=== PATIENT | male | born 1960 | race Caucasian/White ===

== ENCOUNTER 2020-01-27 13:56 | Inpatient (IN) | payer OTHER, SELFPAY ==
[~2020-01-27] VITALS: Ht 180.3 cm; Wt 96.6 kg
[2020-01-27 14:48] VITALS: BP_SYST 142
--- NOTE | 2020-01-27 14:57 | NUR ---
Patient triaged and placed in waiting room. VSS and patient appears in no acute distress at this time. Accompanied by self , awaiting available bed, and MD notified of need for MSE.
--- NOTE | 2020-01-27 15:00 | NUR ---
Pt brought by self, A&Ox4, pt presents to ER with weakness, headache, cough and mild SOB , pt afebrile, skin pink and warm ,cap refill <3, VSS. pt states he was exposed to covid.
--- NOTE | 2020-01-27 15:20 | NUR ---
Dr Brasher evaluating patient in the tent
[2020-01-27] MEDS ORDERED: AZITHROMYCIN 500 MG in NS 250 ML IV ONE (16:30)
[2020-01-27] MEDS ORDERED: cefTRIAXone 1 GM IVPB PREMIX 50 ML IV ONE ×2 (16:30→23:07)
[2020-01-27] MEDS ORDERED: NACL 0.9% 1,000 ML IV ONE (16:30)
[2020-01-27 17:10] LABS: BASOPHILS % (AUTO) 0.1 % (0.0-2.0); HEMOGLOBIN 9.9 g/dL (14.0-18.0); LYMPHOCYTES # (AUTO) 0.7 K/uL (1.0-5.5); LYMPHOCYTES % (AUTO) 13.4 % (20.5-51.5); MEAN CORPUSCULAR HEMOGLOBIN 21 pg (27-31); MEAN CORPUSCULAR HGB CONC 32 % (32-36); MEAN CORPUSCULAR VOLUME 67 fL (79.0-98.0); MONOCYTES # (AUTO) 0.5 K/uL (0.0-1.0); MONOCYTES % (AUTO) 9.1 % (1.7-9.3); NEUTROPHILS # (AUTO) 4.3 K/uL (1.8-7.7); NEUTROPHILS % (AUTO) 77.4 % (40.0-70.0); PLATELET COUNT (AUTO) 219 K/uL (130-430); RED BLOOD CELL COUNT(AUTO) 4.66 MIL/uL (4.2-6.2); RED CELL DISTRIBUTION WIDTH 24.8 % (9.0-15.0); WHITE BLOOD COUNT (AUTO) 5.5 K/uL (4.8-10.8)
[2020-01-27 17:33] LABS: CALCIUM 7.9 mg/dL (8.4-11.0); CREATININE 1.05 mg/dL (0.55-1.30); POTASSIUM 3.5 mmol/L (3.5-5.1)
[2020-01-27 17:49] LABS: ALBUMIN 2.2 g/dL (3.4-4.8); TOTAL BILIRUBIN 1.2 mg/dL (0.0-1.0)
--- NOTE | 2020-01-27 18:10 | NUR ---
Dr Alberto evaluating patient in the tent
--- NOTE | 2020-01-27 18:10 | NUR ---
Dr Anshu botello patient in the tent
--- NOTE | 2020-01-27 18:18 | NUR ---
Pt O2 89 % Room air, pt placed on 2L NC , O2 increasing at this time.
--- NOTE | 2020-01-27 18:25 | NUR ---
No rooms available for this patient, await
--- NOTE | 2020-01-27 19:46 | NUR ---
Pt A&Ox4, VSS, respirations even and unlabored, cap refill <3, pt continues on O2 2L NC.
--- NOTE | 2020-01-27 19:47 | NUR ---
Report given to Marlene COURTNEY
[2020-01-27] MEDS ORDERED: NACL 0.9% 2,000 ML IV ONE (20:45)
--- NOTE | 2020-01-27 21:11 | NUR ---
Admit orders received from Dr. Carter, pt to go to Tele. No beds available in ER currently. Will bring pt to main ER as soon as bed becomes available.
--- NOTE | 2020-01-27 21:42 | NUR ---
Patient to ER CHAIR DMITRIY rivera for evaluation.
--- NOTE | 2020-01-27 22:25 | NUR ---
# 20 gauge angiocath placed to RIGHT AC. Use of asceptic technique. Opsite placed over site. Blood return noted. Flushed with 10 cc of normal saline. No evidence of infiltration noted. Patient tolerated well.
--- NOTE | 2020-01-27 22:35 | NUR ---
PT ALERT AND ORIENTED FROM C/O STUFFY NOSE, FEELING ILL, AND COUGH. YESTERDAY SON WAS TESTED YESTERDAY AND CAME BACK POSITIVE FOR COVID 19. PT C/O OF SHORTNESS OF BREATH, FEVER, CHILLS. PT ON 2L NC. WILL CONTINUE TO MONITOR.
--- NOTE | 2020-01-27 22:59 | NUR ---
Patient to ER HALLWAY BED 1. Side rails up. PLACED ON EMPLOYMENT EDUCATIONAL COORD.
--- NOTE | 2020-01-27 23:05 | NUR ---
Blood cultures drawn, prior to administration of antibiotic.
[2020-01-27] MEDS ORDERED: AZITHROMYCIN 500 MG/VIAL (ZITHROMAX) IV ONE (23:08)
[2020-01-27] MEDS ORDERED: IBUP-1970 PO (23:30)
[2020-01-27] MEDS ORDERED: ROSU20TA2 PO (23:30)
[2020-01-27] MEDS ORDERED: OMEP20CA15 PO (23:30)
[2020-01-27] MEDS ORDERED: NEU300 PO (23:30)
--- NOTE | 2020-01-27 23:30 | NUR ---
Medication reconciliation completed with information provided by PATIENT. Any prior medication reconciliation on file was reviewed and corrected.
--- NOTE | 2020-01-27 23:31 | NUR ---
Patient's code status is FULL CODE paperwork completed and placed in chart.
--- NOTE | 2020-01-27 23:53 | NUR ---
Patient will be admitted to care of [facility]. Admitted to TELE unit. Will go to room 122B. Belongings list completed. Complete and up to date summary report printed. SBAR report to be given at bedside with opportunity for questions.
--- NOTE | 2020-01-28 00:15 | NUR ---
Transfer to TELE via ACLS protocol. Licensed nurse present. IV present no signs or symptoms of infiltration.
[2020-01-28 00:30] VITALS: BP_SYST 143
[2020-01-28] MEDS ORDERED: HYDROcodone/ACETAMIN 5-325 MG TAB (NORCO/ VICODIN) PO PRN (00:30)
[2020-01-28] MEDS ORDERED: HYDROcodone/ACETAMIN 10-325 MG TAB PO PRN (00:30)
[2020-01-28] MEDS ORDERED: ACETAMINOPHEN 325 MG TABLET PO PRN (00:30)
[2020-01-28] MEDS ORDERED: ALBUTEROL SULFATE 0.083% 2.5 MG/3 ML VIAL.NEB INH PRN (00:30)
[2020-01-28] MEDS ORDERED: LORazepam 2 MG/ML VIAL IVP PRN (00:30)
[2020-01-28] MEDS ORDERED: NALOXONE HCL 0.4 MG/ML AMP (NARCAN) IVP PRN ×2 (00:30)
[2020-01-28] MEDS ORDERED: ONDANSETRON HCL 4 MG/2 ML VIAL IVP PRN (00:30)
--- NOTE | 2020-01-28 00:30 | NUR ---
pt.received via the er-dept.er-dept rn provided the pt's report/data.pt.presented lactic acid status:3.9 /3.1 sepsis protocol initiate in the er-dept.b/cx drawn;iv fluids ns fluids initiated.rocephin/zithromax abx ivpb initiated in the er-dept.zithromax administration in progress upon arrival to the unit.no c/o pain,nausea.pt.capable to reposition self/ambulate.i have provided the orientation to the room.call light/telephone demonstration.i have apprised the pt.that i may provide snacks/beverages w/in the shift.pt.requested juice.call light/telephone placed w/in access of the pt.
[2020-01-28] MEDS: DEXAMETHASONE SOD PHOSPHATE 10 MG/ML VIAL IVP SCH (00:37)
[2020-01-28 00:59] VITALS: BP_SYST 129
--- NOTE | 2020-01-28 02:23 | NUR ---
Consultation Paged Reason for Consultation: Resp Failure/Covid PNA Was consult called: Y Person who was notified: Kayley Consulting Physician: Dr. Peterson Ordering Physician: Dr. Carter.
[2020-01-28] MEDS: IPRATROPIUM BROM 0.5 MG/2.5 ML VIAL.NEB (ATROVENT) INH SCH (03:00)
[2020-01-28 04:00] VITALS: BP_SYST 145
[2020-01-28] MEDS ORDERED: NORMAL SALINE 5 ML DISP.SYRIN IVF SCH (06:00)
[2020-01-28] MEDS: NORMAL SALINE 5 ML DISP.SYRIN IVF SCH ×3 (06:00→20:58)
--- NOTE | 2020-01-28 06:30 | NUR ---
pt.assessed.pt.presents quiescent affect;calm,resting.iv fluids #3/3 ns per the sepsis protocol iv fluids in progress.no c/o pain,nausea.no requests posited@this hour.o2-sat%=96%.pt.capable to reposition self/ambulate.call light/telephone w/in access of the pt.
[2020-01-28] MEDS ORDERED: OMEPRAZOLE Non-Formulary 20 MG CAPSULE.DR PO SCH (09:00)
[2020-01-28] MEDS ORDERED: PANTOPRAZOLE SODIUM 40 MG TAB PO SCH (09:00)
[2020-01-28] MEDS: IBUPROFEN 800 MG TABLET PO SCH ×2 (10:00→20:57)
[2020-01-28] MEDS: ENOXAPARIN SODIUM 40 MG/0.4 ML SYRINGE SUBCUT SCH (10:00)
[2020-01-28] MEDS: GABAPENTIN 300 MG CAPSULE PO SCH ×2 (10:00→20:57)
[2020-01-28] MEDS: ATORVASTATIN 20 MG TABLET PO SCH (10:01)
[2020-01-28 11:37] VITALS: BP_SYST 132
[2020-01-28] MEDS: ALBUTEROL MDI INHALATION 8 GM INH INH SCH ×3 (11:52→20:16)
--- NOTE | 2020-01-28 14:00 | NUR ---
PT RESTING IN BED, NO C/O PAIN, NO SOB.
--- NOTE | 2020-01-28 16:00 | NUR ---
PER R.T. , HE PLACED PT ON O2 4LI NC BEC. PT IS DESATURATING. CURREDNT O2 SAT ON 4LI NC IS 92-94%
[2020-01-28 16:04] VITALS: BP_SYST 126
--- NOTE | 2020-01-28 16:45 | NUR ---
DR SEBASTIAN HERE AND SEEN PTMD EXPLAINED TO PT CONVALESCENT PLASMA.
--- NOTE | 2020-01-28 17:15 | NUR ---
PT SIGNED CONSENT FOR CONVAL PLASMA, REQUISITION TAKEN TO LAB/ [facility]
[2020-01-28] MEDS ORDERED: IVERMECTIN 3 MG TABLET PO ONE (17:30)
--- NOTE | 2020-01-28 19:10 | NUR ---
CLOSING NOTES, PT HAS BEEN STABLE. NO C/O PAIN, NO SOB. PT DESAT AT AROUND 1600, R.T ADJUSTED O2 TO 4LI PER NC. ALL NEEDS MED AND ATTENDED TO. ENDORSED TO NIGHT NURSE
--- NOTE | 2020-01-28 19:47 | NUR ---
OPENING NOTES: Received report from dayshift nurse. Patient is laying in bed with no s/s of distress or discomfort. He is on O2 4L via NC, tolerating well. IV noted on RAC 20G SL. Ensured all safety precautions. Bed is in the lowest position and call light within reach.
[2020-01-28 20:00] VITALS: BP_SYST 127
--- NOTE | 2020-01-28 20:45 | NUR ---
MEDICATION ADMINISTRATION: Administered medications as ordered by MD, pt tolerated well. Educated patient about Pepcid and it's benefits. He verbalized understanding.
[2020-01-28] MEDS: FAMOTIDINE PF 20 MG/2 ML VIAL IVP SCH (20:57)
[2020-01-28] MEDS ORDERED: ROSUVASTATIN CALCIUM 5 MG/TAB (CRESTOR) PO SCH (21:00)
[2020-01-28] MEDS: cefTRIAXone 1 GM IVPB PREMIX 50 ML IV SCH (22:07)
[2020-01-28] MEDS: AZITHROMYCIN 500 MG in NS 250 ML IV SCH (22:53)
[2020-01-29] VITALS: BP_SYST 104
--- NOTE | 2020-01-29 | NUR ---
RN ROUNDS / VITALS: Patient is laying in bed and is in stable condition. Vitals are within normal limits. Will continue to monitor.
[2020-01-29] MEDS: DEXAMETHASONE SOD PHOSPHATE 10 MG/ML VIAL IVP SCH (01:50)
--- NOTE | 2020-01-29 03:00 | NUR ---
RN ROUNDS: Patient is laying in bed and appears to be asleep. He has unlabored breathing on 4L O2 via NC, tolerating well. Will continue to monitor.
--- NOTE | 2020-01-29 03:10 | NUR ---
RN ROUNDS: Patient is laying in bed with no s/s of distress or discomfort. He appears to be asleep. Will continue to monitor.
--- NOTE | 2020-01-29 05:20 | NUR ---
BT INITIATION: Consent signed per patient agreeing to administration of plasma. Plasma has been type and crossmatched. Plasma sent from blood bank. Information on unit of blood checked against patient wristband at bedside by two nurses. All information matches. Patient or responsible green party informed of potential complications associated with blood transfusion. Informed of possible transfusion reaction symptoms. Aware of need to notify nurse at once of itching, shortness of breath, flushing, feeling of impending doom, or other symptoms not previously present. Vital signs taken within 5 minutes prior to initiation of transfusion. RN will remain with patient for first 15 minutes of transfusion at which time vital signs will be re-assessed.
[2020-01-29 05:30] VITALS: BP_SYST 123
[2020-01-29] MEDS: NORMAL SALINE 5 ML DISP.SYRIN IVF SCH ×3 (06:00→21:47)
--- NOTE | 2020-01-29 06:00 | NUR ---
PLASMA TRANSFUSION: Patient tolerating well, will continue to monitor.
--- NOTE | 2020-01-29 06:07 | NUR ---
PATIENT'S SISTER PAT CALLED FOR AN UPDATE: Per patient okay to provide update and information regarding stay to his sister. I informed her pt was stable throughout shift and with no changes in status. She wanted to know if patient was still on oxygen which I informed her he is. She was appreciative of information and will update family.
--- NOTE | 2020-01-29 07:21 | NUR ---
CLOSING NOTES: Patient is laying in bed with no s/s of distress or discomfort. Patient on TELE throughout shift. He is on O2 5L via NC, tolerating well with SPO2 at 91%. IV on RAC 20G SL. Ensured all safety precautions. Bed is in the lowest position and call light within reach. All needs were met throughout shift. Endorsed care to dayshift nurse.
[2020-01-29 08:10] LABS: BASOPHILS % (AUTO) 0.1 % (0.0-2.0); HEMATOCRIT 25.8 % (36-54); HEMOGLOBIN 8.3 g/dL (14.0-18.0); LYMPHOCYTES # (AUTO) 0.7 K/uL (1.0-5.5); LYMPHOCYTES % (AUTO) 8.8 % (20.5-51.5); MEAN CORPUSCULAR HEMOGLOBIN 21 pg (27-31); MEAN CORPUSCULAR HGB CONC 32 % (32-36); MEAN CORPUSCULAR VOLUME 66 fL (79.0-98.0); MONOCYTES # (AUTO) 0.6 K/uL (0.0-1.0); MONOCYTES % (AUTO) 7.6 % (1.7-9.3); NEUTROPHILS # (AUTO) 6.2 K/uL (1.8-7.7); NEUTROPHILS % (AUTO) 83.5 % (40.0-70.0); PLATELET COUNT (AUTO) 192 K/uL (130-430); RED CELL DISTRIBUTION WIDTH 25.1 % (9.0-15.0); WHITE BLOOD COUNT (AUTO) 7.4 K/uL (4.8-10.8)
[2020-01-29] MEDS: GABAPENTIN 300 MG CAPSULE PO SCH ×2 (08:27→21:46)
[2020-01-29] MEDS: ENOXAPARIN SODIUM 40 MG/0.4 ML SYRINGE SUBCUT SCH (08:27)
[2020-01-29] MEDS: FAMOTIDINE PF 20 MG/2 ML VIAL IVP SCH ×2 (08:27→21:46)
[2020-01-29] MEDS: ATORVASTATIN 20 MG TABLET PO SCH (08:28)
[2020-01-29] MEDS: IBUPROFEN 800 MG TABLET PO SCH ×2 (08:29→21:46)
[2020-01-29 08:48] VITALS: BP_SYST 137
[2020-01-29 09:05] LABS: ALBUMIN 1.8 g/dL (3.4-4.8); CALCIUM 7.2 mg/dL (8.4-11.0); CREATININE 0.91 mg/dL (0.55-1.30); PHOSPHORUS 1.7 mg/dL (2.7-4.5); POTASSIUM 4.2 mmol/L (3.5-5.1)
--- NOTE | 2020-01-29 10:30 | NUR ---
Respiratory changed to Oxymizer 8 liter saturation 92% mild SOB will monitor.
[2020-01-29 11:15] LABS: ALBUMIN 1.8 g/dL (3.4-4.8); BILIRUBIN,DIRECT 0.6 mg/dL (0.0-0.3); TOTAL BILIRUBIN 0.9 mg/dL (0.0-1.0)
--- NOTE | 2020-01-29 16:05 | NUR ---
P.T. NOTES P.T. EVAL COMPLETED; REFER TO EVAL FOR DETAILS; ENDORSED TO NURSING; O2 SAT ROOM AIR=86%; O2 N/C 4L=95% Addendum: 01/30/20 at 1014 by Yuni Walden PT O2 OXYMIZER 4L
--- NOTE | 2020-01-29 16:16 | NUR ---
Dietitian Recommendations * Recommend continuing cardiac diet LP, RD Please refer to Nutrition Assessment for details. Addendum: 01/29/20 at [address] Amended: Links added.
[2020-01-29 16:20] VITALS: BP_SYST 110
--- NOTE | 2020-01-29 17:39 | NUR ---
Patient tolerating well oxymizer decrease to 3 lliter oxygen saturation 94%, Antiviral medication completed with out adverse reaction
--- NOTE | 2020-01-29 19:35 | NUR ---
initial notes: pt is awake, alert, oriented x 4. no pain, slight sob on bed. pt is on o2 3l via oxymizer. stable. iv lock to right ac gauge 20-intact and patent. discuss to pt plan of care, and safety. pt verbalized understanding. call light in reach, side rails up. low bed position. needs attended. will monitor.
[2020-01-29 19:54] VITALS: BP_SYST 129
[2020-01-29] MEDS: ALBUTEROL MDI INHALATION 8 GM INH INH SCH (20:16)
--- NOTE | 2020-01-29 22:00 | NUR ---
sleeping, comfortable, not distress,stable. will monitor.
--- NOTE | 2020-01-30 | NUR ---
sleeping, no pain, no sob, stable vital sign, needs attended.
[2020-01-30 00:19] VITALS: BP_SYST 126
[2020-01-30] MEDS: AZITHROMYCIN 500 MG in NS 250 ML IV SCH ×2 (00:24→23:12)
[2020-01-30] MEDS: cefTRIAXone 1 GM IVPB PREMIX 50 ML IV SCH ×2 (00:24→23:07)
[2020-01-30] MEDS: ALBUTEROL MDI INHALATION 8 GM INH INH SCH ×6 (00:24→20:31)
[2020-01-30] MEDS: DEXAMETHASONE SOD PHOSPHATE 10 MG/ML VIAL IVP SCH ×2 (00:30→23:11)
--- NOTE | 2020-01-30 02:00 | NUR ---
sleeping on his side. comfortable. no pain, not distress, will monitor.
--- NOTE | 2020-01-30 04:05 | NUR ---
sleeping, comfortable, no sob, not distress, stable. call light in reach. will monitor.
--- NOTE | 2020-01-30 06:00 | NUR ---
sleeping on prone position. comfortable, no sob, not distress, stable. call light in reach. will monitor.
[2020-01-30] MEDS: NORMAL SALINE 5 ML DISP.SYRIN IVF SCH ×3 (06:01→21:43)
--- NOTE | 2020-01-30 07:04 | NUR ---
closing: pt is still sleeping. no pain. no sign of distress. o2 via oxymizer 6l sating above 94%. needs attended the whole shift. call light in reach. low bed position. covid isolation. will give sbar report to am rn.
[2020-01-30 07:42] LABS: ERYTHROCYTE SEDIMENTATION RATE 13 MM/HR (0-15)
[2020-01-30 07:43] LABS: BASOPHILS % (AUTO) 0.1 % (0.0-2.0); HEMATOCRIT 27.8 % (36-54); HEMOGLOBIN 8.9 g/dL (14.0-18.0); LYMPHOCYTES # (AUTO) 0.4 K/uL (1.0-5.5); LYMPHOCYTES % (AUTO) 6.1 % (20.5-51.5); MEAN CORPUSCULAR HEMOGLOBIN 21 pg (27-31); MEAN CORPUSCULAR HGB CONC 32 % (32-36); MEAN CORPUSCULAR VOLUME 67 fL (79.0-98.0); MONOCYTES # (AUTO) 0.5 K/uL (0.0-1.0); MONOCYTES % (AUTO) 7.1 % (1.7-9.3); NEUTROPHILS # (AUTO) 5.7 K/uL (1.8-7.7); NEUTROPHILS % (AUTO) 86.7 % (40.0-70.0); PLATELET COUNT (AUTO) 199 K/uL (130-430); RED BLOOD CELL COUNT(AUTO) 4.18 MIL/uL (4.2-6.2); WHITE BLOOD COUNT (AUTO) 6.6 K/uL (4.8-10.8)
[2020-01-30 08:07] LABS: C-REACTIVE PROTEIN QUANT 5.9 mg/dL (0-0.5)
[2020-01-30 08:09] LABS: ALBUMIN 1.7 g/dL (3.4-4.8); CALCIUM 7.2 mg/dL (8.4-11.0); CREATININE 0.87 mg/dL (0.55-1.30); POTASSIUM 3.8 mmol/L (3.5-5.1)
[2020-01-30] MEDS: ATORVASTATIN 20 MG TABLET PO SCH (08:29)
[2020-01-30] MEDS: ENOXAPARIN SODIUM 40 MG/0.4 ML SYRINGE SUBCUT SCH (08:29)
[2020-01-30] MEDS: FAMOTIDINE PF 20 MG/2 ML VIAL IVP SCH ×2 (08:29→21:34)
[2020-01-30] MEDS: GABAPENTIN 300 MG CAPSULE PO SCH ×2 (08:30→21:34)
[2020-01-30] MEDS: IBUPROFEN 800 MG TABLET PO SCH ×2 (08:30→21:00)
--- NOTE | 2020-01-30 08:30 | NUR ---
Respiratory education Encouraged patient to do proning or lateral position , activity as tolerated sitting in the chair as tolerated , chest physiotherapy given, with SOB and frequent count instructed to cover mouth , proper hygiene verbalized understanding.
[2020-01-30 08:37] VITALS: BP_SYST 146
[2020-01-30 08:51] LABS: C-REACTIVE PROTEIN QUANT 4.3 mg/dL (0-0.5); RED CELL DISTRIBUTION WIDTH 25.2 % (9.0-15.0)
[2020-01-30 11:41] VITALS: BP_SYST 148
[2020-01-30 12:21] LABS: ERYTHROCYTE SEDIMENTATION RATE 12 MM/HR (0-15)
--- NOTE | 2020-01-30 13:30 | NUR ---
Patient using incentive spirometer reaching 1500 to 2000 ml, when awake, needs attended.
[2020-01-30] MEDS: IPRATROPIUM BROM 0.5 MG/2.5 ML VIAL.NEB (ATROVENT) INH SCH (15:00)
[2020-01-30 16:33] VITALS: BP_SYST 130
[2020-01-30] MEDS: ASCORBIC ACID 500 MG TABLET PO SCH (18:45)
[2020-01-30] MEDS: CHOLECALCIFEROL (VITAMIN D3) 5,000 UNIT TABLET PO SCH (18:45)
--- NOTE | 2020-01-30 19:20 | NUR ---
initial notes: pt is awake, alert, oriented x 4. no pain, slight sob on bed. pt is on o2 8l via oxymizer sating 96%. stable. iv lock to right ac gauge 20-intact and patent. discuss to pt plan of care, and safety. pt verbalized understanding. call light in reach, side rails up. low bed position. needs attended. will monitor.
[2020-01-30 19:52] VITALS: BP_SYST 149
[2020-01-30] MEDS: ENOXAPARIN SODIUM 100 MG/ML SYRINGE SUBCUT SCH (21:33)
--- NOTE | 2020-01-30 22:05 | NUR ---
sleeping on prone position, comfortable, stable. no sign of distress. covid isolation. needs attended.
[2020-01-31] VITALS: BP_SYST 141
--- NOTE | 2020-01-31 | NUR ---
sleeping on his side, comfortable. no distress, no pain, vital sig are stable. needs attended. odilia light in reach. will monitor.
[2020-01-31] MEDS: ALBUTEROL MDI INHALATION 8 GM INH INH SCH ×6 (00:56→23:00)
--- NOTE | 2020-01-31 02:00 | NUR ---
sleeping, comfortable, no sob, not distress, stable. call light in reach. will monitor.
--- NOTE | 2020-01-31 04:07 | NUR ---
pt wakes up and use urinal. stable. no pain. needs attended. call light in reach. will monitor.
[2020-01-31] MEDS: NORMAL SALINE 5 ML DISP.SYRIN IVF SCH ×3 (06:23→21:20)
--- NOTE | 2020-01-31 06:51 | NUR ---
closing: pt is still sleeping, comfortable. no pain. no sign of distress. o2 via oxymizer 8l sating above 95%. iv lock intact to left ac. needs attended the whole shift. call light in reach. low bed position. covid isolation. will give sbar report to am rn.
[2020-01-31] MEDS: IBUPROFEN 800 MG TABLET PO SCH ×3 (08:53→21:00)
[2020-01-31] MEDS: ATORVASTATIN 20 MG TABLET PO SCH (08:54)
[2020-01-31] MEDS: CHOLECALCIFEROL (VITAMIN D3) 5,000 UNIT TABLET PO SCH (08:54)
[2020-01-31] MEDS: FAMOTIDINE PF 20 MG/2 ML VIAL IVP SCH ×2 (08:54→21:19)
[2020-01-31] MEDS: GABAPENTIN 300 MG CAPSULE PO SCH ×2 (08:54→21:19)
[2020-01-31] MEDS: ENOXAPARIN SODIUM 100 MG/ML SYRINGE SUBCUT SCH ×2 (08:57→21:20)
[2020-01-31 09:14] VITALS: BP_SYST 160
[2020-01-31 09:54] LABS: BASOPHILS % (AUTO) 0.1 % (0.0-2.0); HEMATOCRIT 29.7 % (36-54); HEMOGLOBIN 9.4 g/dL (14.0-18.0); LYMPHOCYTES # (AUTO) 0.6 K/uL (1.0-5.5); LYMPHOCYTES % (AUTO) 5.8 % (20.5-51.5); MEAN CORPUSCULAR HEMOGLOBIN 21 pg (27-31); MEAN CORPUSCULAR HGB CONC 32 % (32-36); MEAN CORPUSCULAR VOLUME 67 fL (79.0-98.0); MONOCYTES # (AUTO) 0.8 K/uL (0.0-1.0); MONOCYTES % (AUTO) 7.7 % (1.7-9.3); NEUTROPHILS # (AUTO) 8.6 K/uL (1.8-7.7); NEUTROPHILS % (AUTO) 86.4 % (40.0-70.0); PLATELET COUNT (AUTO) 281 K/uL (130-430); RED BLOOD CELL COUNT(AUTO) 4.43 MIL/uL (4.2-6.2); RED CELL DISTRIBUTION WIDTH 25.1 % (9.0-15.0); WHITE BLOOD COUNT (AUTO) 9.9 K/uL (4.8-10.8)
[2020-01-31] MEDS: ASCORBIC ACID 500 MG TABLET PO SCH (10:57)
[2020-01-31 11:00] VITALS: BP_SYST 151
--- NOTE | 2020-01-31 11:28 | NUR ---
LOW oxygen saturation Paged Dr. Butler to informed regarding low oxygen saturation, no SOB on 12 liter oxygen saturation 84 to 85% , changed oxygen setting to non rebreather mask 100% oxygen saturation 96%, kept on continuos pulse oximeter will monitor.
[2020-01-31 11:31] LABS: ALBUMIN 1.9 g/dL (3.4-4.8); BILIRUBIN,DIRECT 0.8 mg/dL (0.0-0.3); CALCIUM 7.5 mg/dL (8.4-11.0); CREATININE 0.86 mg/dL (0.55-1.30); POTASSIUM 4.5 mmol/L (3.5-5.1); TOTAL BILIRUBIN 1.3 mg/dL (0.0-1.0)
[2020-01-31 11:32] LABS: ERYTHROCYTE SEDIMENTATION RATE 12 MM/HR (0-15)
--- NOTE | 2020-01-31 12:45 | NUR ---
Patient sit in the edge of the bed for lunch changed oxygen to Oxymizer at 12 liter saturation drop to 86 to 85 % with mild SOB , coughing, tolerates po well , after meal kept on non rebreather mask 100% oxygen saturation 95 to 96%
[2020-01-31 12:50] VITALS: BP_SYST 151
[2020-01-31 14:18] LABS: C-REACTIVE PROTEIN QUANT 6.1 mg/dL (0-0.5)
--- NOTE | 2020-01-31 14:56 | NUR ---
CONSULTATION PAGED/CALLED Reason for Consultation: TRANSAMINITIS Person Who was Notified: ELAINE Consulting Physician: Automatic Pinsetter Mechanic Specialty: GI Ordering Physician: HARRY TORRES
[2020-01-31] MEDS: IPRATROPIUM BROM 0.5 MG/2.5 ML VIAL.NEB (ATROVENT) INH SCH ×2 (15:00→23:00)
--- NOTE | 2020-01-31 15:06 | NUR ---
Carrie Agarwal informed regarding progress of patient low oxygen saturation from Oxymizer to non rebreather mask 100% oxygen saturation 98% , patient on lateral position , cannot tolerate proning will monitor.
--- NOTE | 2020-01-31 15:53 | NUR ---
SS notes [employer] called and spoke to Lakeshia geiger. referral for [facility], . Lakeshia stated she this [facility]. [employer] thanked her for the update.
[2020-01-31 16:00] VITALS: BP_SYST 129
--- NOTE | 2020-01-31 16:15 | NUR ---
Patient with mild dizziness provided bedside commode, TSB given , kept sitting in the edge of bed with 100% non rebreathing mask .safety/fall precaution initiated.
--- NOTE | 2020-01-31 19:20 | NUR ---
initial notes: pt is awake, alert, oriented x 4. no pain, slight sob on bed. pt is on o2 via non rebreather mask. stable vs. iv lock to right ac gauge 20-intact and patent. discuss to pt plan of care, and safety. pt verbalized understanding. call light in reach, side rails up. low bed position. needs attended. covid isolation. will monitor.
[2020-01-31 20:33] VITALS: BP_SYST 139
--- NOTE | 2020-01-31 20:53 | NUR ---
recieved call from [employer]. stating that she will do the test tomorrow am and pt can eat tonight. fasting for 8 hours after.
--- NOTE | 2020-01-31 22:00 | NUR ---
sitting on edge of bed, eating his dinner, on oxymizer, pt tolerate well.
[2020-01-31] MEDS: cefTRIAXone 1 GM IVPB PREMIX 50 ML IV SCH (22:33)
[2020-02-01] VITALS: BP_SYST 140
--- NOTE | 2020-02-01 | NUR ---
sleeping on his side, comfortable. no distress, no pain, vital sig are stable. needs attended. odilia light in reach. will monitor.
[2020-02-01] MEDS: AZITHROMYCIN 500 MG in NS 250 ML IV SCH ×2 (00:04→23:30)
[2020-02-01] MEDS: DEXAMETHASONE SOD PHOSPHATE 10 MG/ML VIAL IVP SCH (00:04)
--- NOTE | 2020-02-01 02:11 | NUR ---
sleeping on his side stable. no pain, tolerate breathing on non rebreather mask, call light in reach.
[2020-02-01] MEDS: IPRATROPIUM BROM 0.5 MG/2.5 ML VIAL.NEB (ATROVENT) INH SCH ×2 (03:00→07:30)
[2020-02-01] MEDS: ALBUTEROL MDI INHALATION 8 GM INH INH SCH ×6 (03:57→23:59)
--- NOTE | 2020-02-01 04:02 | NUR ---
sleeping on his side stable. no pain, tolerate breathing on non rebreather mask, call light in reach.covid isolation.
[2020-02-01] MEDS: NORMAL SALINE 5 ML DISP.SYRIN IVF SCH ×3 (05:49→21:17)
--- NOTE | 2020-02-01 06:00 | NUR ---
sleeping, comfortable, no sob, not distress, stable. call light in reach. will monitor.
--- NOTE | 2020-02-01 07:05 | NUR ---
closing: pt is still sleeping, comfortable. no pain. no sign of distress. o2 via non rebreather 15l sating 96%. iv lock intact to left ac. needs attended the whole shift. npo for 8 hours for abdominal ultrasound. call light in reach. low bed position. covid isolation. will give sbar report to am marilyn.
[2020-02-01 07:52] LABS: BASOPHILS % (AUTO) 0.1 % (0.0-2.0); HEMATOCRIT 29.7 % (36-54); HEMOGLOBIN 9.3 g/dL (14.0-18.0); LYMPHOCYTES # (AUTO) 0.5 K/uL (1.0-5.5); LYMPHOCYTES % (AUTO) 4.6 % (20.5-51.5); MEAN CORPUSCULAR HEMOGLOBIN 21 pg (27-31); MEAN CORPUSCULAR HGB CONC 31 % (32-36); MEAN CORPUSCULAR VOLUME 66 fL (79.0-98.0); MONOCYTES # (AUTO) 0.7 K/uL (0.0-1.0); MONOCYTES % (AUTO) 5.9 % (1.7-9.3); NEUTROPHILS # (AUTO) 10.6 K/uL (1.8-7.7); NEUTROPHILS % (AUTO) 89.4 % (40.0-70.0); PLATELET COUNT (AUTO) 312 K/uL (130-430); RED BLOOD CELL COUNT(AUTO) 4.47 MIL/uL (4.2-6.2); RED CELL DISTRIBUTION WIDTH 25.1 % (9.0-15.0); WHITE BLOOD COUNT (AUTO) 11.9 K/uL (4.8-10.8)
[2020-02-01 08:00] VITALS: BP_SYST 143
--- NOTE | 2020-02-01 08:00 | NUR ---
Initial notes- In bed, awake and oriented. on non rebreather mask 02 sat at 99-100%. uses urinal and bedside commode. call light within reach. Enc to call for help as needed.
--- NOTE | 2020-02-01 08:08 | NUR ---
RT NOTES SPOKE WITH DR. KIM. KEEP PT ON NONREBREATHER MASK AND MONITOR SPO2. NO ABG/ HFNC NEEDED AT THIS TIME.
[2020-02-01 08:12] LABS: INR 2.1 (0.80-1.20)
[2020-02-01 08:34] LABS: ALBUMIN 1.7 g/dL (3.4-4.8); CALCIUM 7.6 mg/dL (8.4-11.0); CREATININE 0.99 mg/dL (0.55-1.30); POTASSIUM 4.1 mmol/L (3.5-5.1); TOTAL BILIRUBIN 1.4 mg/dL (0.0-1.0)
[2020-02-01] MEDS: ENOXAPARIN SODIUM 100 MG/ML SYRINGE SUBCUT SCH ×2 (09:00→21:17)
[2020-02-01 09:30] LABS: ERYTHROCYTE SEDIMENTATION RATE 10 MM/HR (0-15)
--- NOTE | 2020-02-01 09:48 | NUR ---
Dischargre Planning: DCP inquired with Lakeshia at [place] [facility], Lakeshia said no. DCP made CM aware.
[2020-02-01] MEDS: FAMOTIDINE PF 20 MG/2 ML VIAL IVP SCH ×2 (10:07→21:18)
[2020-02-01] MEDS: ASCORBIC ACID 500 MG TABLET PO SCH (10:07)
[2020-02-01] MEDS: GABAPENTIN 300 MG CAPSULE PO SCH ×2 (10:07→21:18)
[2020-02-01] MEDS: CHOLECALCIFEROL (VITAMIN D3) 5,000 UNIT TABLET PO SCH (10:07)
[2020-02-01] MEDS: ATORVASTATIN 20 MG TABLET PO SCH (10:07)
[2020-02-01] MEDS: IBUPROFEN 800 MG TABLET PO SCH ×2 (10:07→21:18)
[2020-02-01 12:00] VITALS: BP_SYST 135
--- NOTE | 2020-02-01 13:00 | NUR ---
INFORMED US LEAH THAT PATIENTS O2 SATURATION WAS 71% HE WILL INFORM RN EVER
--- NOTE | 2020-02-01 15:18 | NUR ---
Notes- Spoke to Dr. aguilera and made aware of patients elevated liver enzymes. MD order to hold the Remdesivir and we can cancelled ultrasound of the abdomen.
[2020-02-01 16:00] VITALS: BP_SYST 130
[2020-02-01 18:07] LABS: C-REACTIVE PROTEIN QUANT 5.5 mg/dL (0-0.5)
--- NOTE | 2020-02-01 19:25 | NUR ---
OPENING NOTE RECEIVED SBAR REPORT FROM OFF COMING RN FOR CONTINUITY OF CARE.
[2020-02-01 20:30] VITALS: BP_SYST 126
--- NOTE | 2020-02-01 20:30 | NUR ---
PT SITTING AT THE EDGE OF THE BED EATING DINNER, A/O X4. PT DENIES ANY DISCOMFORT BUT C/O 6/10 ABDOMINAL PAIN. PT WILL BE RECEIVING SCHEDULED MOTRIN PER APR, WILL REASSESS PAIN LEVEL AFTER ADMINISTRATION. PT ON 15 L NON REBREATHER. CALL LIGHT WITHIN REACH. BED LOCKED AND IN LOWEST POSITION, SAFETY PRECAUTIONS IN PLACE. WILL CONTINUE TO MONITOR AND ASSESS.
[2020-02-01] MEDS: cefTRIAXone 1 GM IVPB PREMIX 50 ML IV SCH (23:18)
[2020-02-02 00:30] VITALS: BP_SYST 124
--- NOTE | 2020-02-02 00:30 | NUR ---
PT LAYING IN BED WITH EYES CLOSED. NO S/S OF ACUTE DISTRESS NOTED. PT ON 15 L VIA NON REBREATHER. CALL LIGHT WITHIN REACH. BED LOCKED AND IN LOWEST POSITION, SAFETY PRECAUTIONS IN PLACE. WILL CONTINUE TO MONITOR AND ASSESS.
[2020-02-02] MEDS: DEXAMETHASONE SOD PHOSPHATE 10 MG/ML VIAL IVP SCH (00:39)
--- NOTE | 2020-02-02 01:30 | NUR ---
IV PLACEMENT # 18 gauge angiocath placed to left hand. Use of asceptic technique. Opsite placed over site. Blood return noted. Flushed with 10 cc of normal saline. No evidence of infiltration noted. Patient tolerated well.
[2020-02-02] MEDS: ALBUTEROL MDI INHALATION 8 GM INH INH SCH ×5 (04:01→23:00)
--- NOTE | 2020-02-02 05:35 | NUR ---
PT LAYING IN BED ASLEEP. NO S/S OF ACUTE DISTRESS NOTED. PT ON 15 L VIA NON REBREATHER MASK. CALL LIGHT WITHIN REACH. SAFETY PRECAUTIONS IN PLACE. WILL CONTINUE TO MONITOR AND ASSESS.
[2020-02-02] MEDS: NORMAL SALINE 5 ML DISP.SYRIN IVF SCH ×3 (06:14→21:06)
[2020-02-02 07:07] LABS: LYMPHOCYTES # (AUTO) 0.4 K/uL (1.0-5.5); MEAN CORPUSCULAR VOLUME 66 fL (79.0-98.0); MONOCYTES # (AUTO) 0.7 K/uL (0.0-1.0)
[2020-02-02 07:12] LABS: BASOPHILS % (AUTO) 0.3 % (0.0-2.0); HEMATOCRIT 25.8 % (36-54); HEMOGLOBIN 8.2 g/dL (14.0-18.0); LYMPHOCYTES % (AUTO) 4.3 % (20.5-51.5); MEAN CORPUSCULAR HEMOGLOBIN 21 pg (27-31); MEAN CORPUSCULAR HGB CONC 32 % (32-36); MONOCYTES % (AUTO) 7.5 % (1.7-9.3); NEUTROPHILS # (AUTO) 8.2 K/uL (1.8-7.7); NEUTROPHILS % (AUTO) 87.9 % (40.0-70.0); PLATELET COUNT (AUTO) 249 K/uL (130-430); RED BLOOD CELL COUNT(AUTO) 3.89 MIL/uL (4.2-6.2); RED CELL DISTRIBUTION WIDTH 24.8 % (9.0-15.0); WHITE BLOOD COUNT (AUTO) 9.3 K/uL (4.8-10.8)
--- NOTE | 2020-02-02 07:30 | NUR ---
CLOSING NOTE ENDORSED SBAR REPORT TO ONCOMING RN FOR CONTINUITY OF CARE.
[2020-02-02 07:34] LABS: INR 2.4 (0.80-1.20); PROTHROMBIN TIME 24.2 SECS (9.5-12.5)
[2020-02-02 08:00] VITALS: BP_SYST 148
--- NOTE | 2020-02-02 08:40 | NUR ---
Note Dr Fuentes was on the floor and requested that pt's Remdesivir IVPB and Lipitor PO be held today due to Hepatic Panel - lab results.
[2020-02-02] MEDS: ATORVASTATIN 20 MG TABLET PO SCH (08:47)
[2020-02-02] MEDS: CHOLECALCIFEROL (VITAMIN D3) 5,000 UNIT TABLET PO SCH (09:11)
[2020-02-02] MEDS: ASCORBIC ACID 500 MG TABLET PO SCH (09:13)
[2020-02-02] MEDS: GABAPENTIN 300 MG CAPSULE PO SCH ×2 (09:14→21:06)
[2020-02-02] MEDS: IBUPROFEN 800 MG TABLET PO SCH ×2 (09:15→21:06)
[2020-02-02] MEDS: ENOXAPARIN SODIUM 100 MG/ML SYRINGE SUBCUT SCH (09:23)
[2020-02-02] MEDS: FAMOTIDINE PF 20 MG/2 ML VIAL IVP SCH ×2 (09:23→21:06)
[2020-02-02 10:42] LABS: CALCIUM 7.1 mg/dL (8.4-11.0); POTASSIUM 4.3 mmol/L (3.5-5.1)
[2020-02-02 10:43] LABS: ALBUMIN 1.5 g/dL (3.4-4.8); BILIRUBIN,DIRECT 0.9 mg/dL (0.0-0.3); CREATININE 0.88 mg/dL (0.55-1.30); TOTAL BILIRUBIN 1.3 mg/dL (0.0-1.0)
[2020-02-02 12:00] VITALS: BP_SYST 140
--- NOTE | 2020-02-02 12:20 | NUR ---
NOTE DR KIM CALLED BACK AND STATED THAT NO NEED FOR ABG AT THIS TIME. CONTINUE NON REBREATHER AND HIGH FLOW O2.
[2020-02-02 12:28] LABS: ERYTHROCYTE SEDIMENTATION RATE 8 MM/HR (0-15)
[2020-02-02 13:19] LABS: C-REACTIVE PROTEIN QUANT 5.2 mg/dL (0-0.5)
--- NOTE | 2020-02-02 15:35 | NUR ---
Note Spoke to pt's sister Maxine - per pt's request. Update given.
[2020-02-02 16:00] VITALS: BP_SYST 137
--- NOTE | 2020-02-02 18:20 | NUR ---
Note Pt sitting on side of bed eating his meals and pt ambulates to BSC by himself. Pt is checked on q1' and PRN all shift for needs and care. Pt was maintained with safety and isolation precautions all shift. IV in left hand intact and patent all shift. No needs noted at this time. Call light within reach. Pt has had his non rebreather mask on all shift.
--- NOTE | 2020-02-02 19:25 | NUR ---
Report received from day shift nurse. Pt was received lying in bed fully awake, alert and oriented x4. Pt is on oxygen at 15L/min via NRB mask and shortness of breath noted when pt coughs. Pt's cough is non-productive. Oxygen saturation is 94%. Saline lock in left hand is without any signs of infiltration. Fall, droplet isolation and safety precautions are in place.
[2020-02-02 20:00] VITALS: BP_SYST 149
[2020-02-02] MEDS: APIXABAN 2.5 MG TABLET PO SCH (21:07)
--- NOTE | 2020-02-02 21:07 | NUR ---
Scheduled medications given. Pt still coughing on and off. No c/o pain.
[2020-02-02] MEDS: cefTRIAXone 1 GM IVPB PREMIX 50 ML IV SCH (22:44)
--- NOTE | 2020-02-02 22:44 | NUR ---
Scheduled IV antibiotic hung. IV site is without any signs of infiltration. Pt is resting comfortably in bed with oxygen on via NRB mask. No difficulty breathing noted.
[2020-02-03] VITALS: BP_SYST 129
[2020-02-03] MEDS: DEXAMETHASONE SOD PHOSPHATE 10 MG/ML VIAL IVP SCH (00:19)
[2020-02-03] MEDS: ALBUTEROL MDI INHALATION 8 GM INH INH SCH ×6 (03:45→23:56)
[2020-02-03] MEDS: NORMAL SALINE 5 ML DISP.SYRIN IVF SCH ×3 (06:01→21:40)
--- NOTE | 2020-02-03 06:15 | NUR ---
Pt is resting quietly in bed. Pt remains on oxygen at 15L/min via NRB Mask and no respiratory distress noted at this time. Fall, droplet isolation and safety precautions are in place. Pt slept well during the night. Will endorse to day shift nurse.
[2020-02-03 06:37] LABS: BASOPHILS % (AUTO) 0.2 % (0.0-2.0); LYMPHOCYTES # (AUTO) 0.5 K/uL (1.0-5.5); LYMPHOCYTES % (AUTO) 4.7 % (20.5-51.5); MEAN CORPUSCULAR HEMOGLOBIN 21 pg (27-31); MEAN CORPUSCULAR HGB CONC 32 % (32-36); MEAN CORPUSCULAR VOLUME 66 fL (79.0-98.0); MONOCYTES # (AUTO) 0.7 K/uL (0.0-1.0); MONOCYTES % (AUTO) 7.3 % (1.7-9.3); NEUTROPHILS # (AUTO) 8.9 K/uL (1.8-7.7); NEUTROPHILS % (AUTO) 87.8 % (40.0-70.0); PLATELET COUNT (AUTO) 252 K/uL (130-430); RED BLOOD CELL COUNT(AUTO) 3.78 MIL/uL (4.2-6.2); RED CELL DISTRIBUTION WIDTH 24.5 % (9.0-15.0); WHITE BLOOD COUNT (AUTO) 10.2 K/uL (4.8-10.8)
[2020-02-03 06:51] LABS: INR 2.5 (0.80-1.20); PROTHROMBIN TIME 24.6 SECS (9.5-12.5)
[2020-02-03 07:07] LABS: HEPATITIS A AB, IgM Negative (Negative); HEPATITIS B CORE AB, IgM Negative (Negative); HEPATITIS B SURFACE AG Negative (Negative)
[2020-02-03 07:49] LABS: ALBUMIN 1.5 g/dL (3.4-4.8); CALCIUM 7.3 mg/dL (8.4-11.0); CREATININE 1.05 mg/dL (0.55-1.30); POTASSIUM 4.3 mmol/L (3.5-5.1); TOTAL BILIRUBIN 1.6 mg/dL (0.0-1.0)
--- NOTE | 2020-02-03 08:00 | NUR ---
Patient keep sitting in thre bed for breakfast kept on Oxymizer 15 liters oxygen saturation 88% , lying on oxymized saturation drop to 85%, kept on non rebreathing mask 100 % oxygen saturation 96 to 95%, will mild SOB, will monitor, Dr. Jennings seen and examined the patient.,encouraged to proning or side lying as tolerated.
[2020-02-03 08:16] VITALS: BP_SYST 136
[2020-02-03] MEDS: ASCORBIC ACID 500 MG TABLET PO SCH (08:22)
[2020-02-03] MEDS: CHOLECALCIFEROL (VITAMIN D3) 5,000 UNIT TABLET PO SCH (08:22)
[2020-02-03] MEDS: FAMOTIDINE PF 20 MG/2 ML VIAL IVP SCH ×2 (08:23→21:39)
[2020-02-03] MEDS: APIXABAN 2.5 MG TABLET PO SCH ×2 (08:23→21:41)
[2020-02-03] MEDS: GABAPENTIN 300 MG CAPSULE PO SCH ×2 (08:23→21:39)
--- NOTE | 2020-02-03 08:38 | NUR ---
Nutrition Update Jeanmarie scale 18 noted. Pt admitted for respiratory failure/COVID PNA Diet: Cardiac Diet BMI: 29.7 kg/m2 RD to follow per nutrition care standards.
[2020-02-03] MEDS: IBUPROFEN 800 MG TABLET PO SCH ×2 (09:00→21:39)
[2020-02-03 10:49] VITALS: BP_SYST 136
[2020-02-03 10:53] LABS: C-REACTIVE PROTEIN QUANT 6.3 mg/dL (0-0.5)
[2020-02-03 11:59] VITALS: BP_SYST 142
--- NOTE | 2020-02-03 13:00 | NUR ---
Patient able to get out of bed to bedside commode no dizziness oxygen saturation drop to 84%, back to bed resting oxygen saturation 95%
[2020-02-03 14:25] LABS: ERYTHROCYTE SEDIMENTATION RATE 6 MM/HR (0-15)
--- NOTE | 2020-02-03 15:21 | NUR ---
Nutrition F/U RD reviewed pt's current EMR record including diet hx, MD notes, RN notes, pertinent labs/meds/procedures, care trends, and care activity Admitting Diagnosis Respiratory failure/COVID pneumonia Reviewed Pertinent Medical/Surgical Hx Medical Record Other Medical History Comment: PMH: HLD, dyspepsia per physician notes Pt also found w/ sepsis per physician notes SARS-CoV-2 Ag (Rapid) Positive 01/[address] bedside visit deferred d/t isolation precautions and PPE conservation efforts. Per EMR, pt continues to have good PO intake, w/ 75% for last [address]. Current diet remains adequate and appropriate to meet needs. Noted pt not on Remdesivir, possibly d/t elevated LFTs. GI following for elevated LFTs noted. +BM 02/02 Current Diet Order/Nutrition Support Cardiac x6 days Patient/Significant Other Unable To Verbalize Education Provided Not Indicated Pertinent Medications decadron, pepcid, lipitor, eliquis, zinc sulfate, vit D3, vit C Pertinent Labs BG 261 H, ALB 1.5 L Patient Weight 96.615 kg Skin Integrity Comment: Jeanmarie scale: 19; no skin breakdown per RN report Current % PO 75% average x12 meals Estimated Energy Expenditure (kcals/day) 5861-2780 kcal/day (30-35 kcal/kg IBW for acute state, sepsis) Estimated Protein Required (g/day) 101-156 gm/day (1.3-2 gm/kg IBW for acute state, sepsis) Estimated Fluid Required (l/day) 2.3-2.7 L/day (1 ml/kcal/day for maintenance) Problem/Etiology/Signs/Symptoms Increased nutritional needs related to metabolic demands as evidenced by estimated nutritional requirements for acute state and sepsis. *ongoing Expected Outcomes/Goals - Monitor appetite and PO intakes w/ goal of pt meeting at least 80% of estimated nutritional needs, labs trending WNL, normal GI function, and skin integrity/wt maintenance Dietitian Recommendations * Recommend continuing cardiac diet Follow Up Mod Risk: F/U in 3-5 days
--- NOTE | 2020-02-03 15:33 | NUR ---
Dietitian Recommendations * Recommend continuing cardiac diet Please see Nutrition Assessment for details. EP,TEMI
[2020-02-03 16:46] VITALS: BP_SYST 137
[2020-02-03] MEDS ORDERED: traZODone HCL 50 MG TABLET (DESYREL) PO PRN (18:45)
--- NOTE | 2020-02-03 19:25 | NUR ---
Report received from day shift nurse. Pt was received sitting up at the bedside fully awake, alert and oriented x4. Pt is on oxygen at 15L/min via NRB mask. Saline lock in left hand is without any signs of infiltration. Fall, droplet isolation and safety precautions are in place.
[2020-02-03 20:00] VITALS: BP_SYST 149
--- NOTE | 2020-02-03 20:40 | NUR ---
Pt's sister Maxine Carney, telephone # [phone] was given updates on pt's condition after pt gave the okay to give her updates.
[2020-02-03] MEDS: cefTRIAXone 1 GM IVPB PREMIX 50 ML IV SCH (22:38)
[2020-02-04] MEDS: DEXAMETHASONE SOD PHOSPHATE 10 MG/ML VIAL IVP SCH ×2 (00:34→23:50)
[2020-02-04 01:47] VITALS: BP_SYST 153
--- NOTE | 2020-02-04 02:15 | NUR ---
Pt appears confused and noted to have removed Angiocath in his left hand. Pt also noted to have removed his NRB mask. New IV line started in right wrist with Angiocath 22G after 3 attempts. Pt keeps taking off his NRB mask and desaturates into the 70's. Pt was encouraged to leave the NRB mask on and pt verbalized understanding.
--- NOTE | 2020-02-04 02:30 | NUR ---
PAGED PAGED DOCTOR Stuart CATALAN
--- NOTE | 2020-02-04 02:45 | NUR ---
2ND PAGED PAGED DOCTOR Stuart CATALAN
--- NOTE | 2020-02-04 03:03 | NUR ---
3RD PAGED PAGED DOCTOR Stuart CATALAN
[2020-02-04] MEDS: ALBUTEROL MDI INHALATION 8 GM INH INH SCH ×5 (04:14→23:40)
[2020-02-04] MEDS: NORMAL SALINE 5 ML DISP.SYRIN IVF SCH ×3 (05:39→22:00)
--- NOTE | 2020-02-04 06:20 | NUR ---
Pt remains confused and continues to take his oxygen mask off. Dr. Carter called back and gave new orders for restraints. Left voice mail messages for (contacts) daughter Sindy and sister Maxine to call back.
[2020-02-04 06:26] VITALS: BP_SYST 66
[2020-02-04 06:31] LABS: BASOPHILS # (AUTO) 0.1 K/uL (0.0-0.2); BASOPHILS % (AUTO) 0.3 % (0.0-2.0); HEMATOCRIT 24.9 % (36-54); HEMOGLOBIN 7.7 g/dL (14.0-18.0); LYMPHOCYTES # (AUTO) 0.6 K/uL (1.0-5.5); LYMPHOCYTES % (AUTO) 2.6 % (20.5-51.5); MEAN CORPUSCULAR HEMOGLOBIN 21 pg (27-31); MEAN CORPUSCULAR HGB CONC 31 % (32-36); MEAN CORPUSCULAR VOLUME 67 fL (79.0-98.0); MONOCYTES # (AUTO) 1.4 K/uL (0.0-1.0); MONOCYTES % (AUTO) 5.7 % (1.7-9.3); NEUTROPHILS # (AUTO) 22.4 K/uL (1.8-7.7); PLATELET COUNT (AUTO) 418 K/uL (130-430); RED CELL DISTRIBUTION WIDTH 25.4 % (9.0-15.0); WHITE BLOOD COUNT (AUTO) 24.5 K/uL (4.8-10.8)
[2020-02-04 06:49] LABS: ALBUMIN 1.7 g/dL (3.4-4.8); BILIRUBIN,DIRECT 1.9 mg/dL (0.0-0.3); CALCIUM 7.9 mg/dL (8.4-11.0); CREATININE 1.3 mg/dL (0.55-1.30); POTASSIUM 4.6 mmol/L (3.5-5.1); TOTAL BILIRUBIN 2.7 mg/dL (0.0-1.0)
[2020-02-04 06:50] LABS: INR 2.5 (0.80-1.20); PROTHROMBIN TIME 25.3 SECS (9.5-12.5)
--- NOTE | 2020-02-04 06:55 | NUR ---
Dr. Wallace was paged for ABG orders per Dr. Carter's request.
--- NOTE | 2020-02-04 07:05 | NUR ---
Pt's sister Maxine called back and was informed pt is now confused and has been taking off his oxygen mask causing pt to desaturate. Maxine gave okay to apply wrist restraints.
--- NOTE | 2020-02-04 07:30 | NUR ---
Dr. Wallace called back and was informed Dr. Carter requested for him to order ABGs due to pt's condition. Dr. Jennings was informed pt is now confused and on wrist restraints. Dr. Jennings stated he will be in to examine pt. Report given to day shift nurse.
[2020-02-04 08:00] VITALS: BP_SYST 165
[2020-02-04 08:51] LABS: C-REACTIVE PROTEIN QUANT 5.8 mg/dL (0-0.5)
[2020-02-04] MEDS: FAMOTIDINE PF 20 MG/2 ML VIAL IVP SCH ×2 (09:00→21:00)
[2020-02-04] MEDS: IBUPROFEN 800 MG TABLET PO SCH ×2 (09:00→21:00)
[2020-02-04] MEDS: ASCORBIC ACID 500 MG TABLET PO SCH (10:00)
[2020-02-04] MEDS: CHOLECALCIFEROL (VITAMIN D3) 5,000 UNIT TABLET PO SCH (10:00)
[2020-02-04] MEDS: GABAPENTIN 300 MG CAPSULE PO SCH ×2 (10:00→21:00)
[2020-02-04 11:16] VITALS: BP_SYST 160
[2020-02-04 11:38] LABS: ERYTHROCYTE SEDIMENTATION RATE 11 MM/HR (0-15)
--- NOTE | 2020-02-04 11:54 | NUR ---
informed SHERWIN Russell to tell SHERWIN Rosa that pt is off monitor.
--- NOTE | 2020-02-04 13:08 | NUR ---
Patient has [facility]-spoke delma/ Johnathan at [facility]-[phone] reqarding transfer to higher level of care. He stated they currently have no beds at [facility]-they will transfer to [facility] when bed is available.
--- NOTE | 2020-02-04 14:00 | NUR ---
PLACED ON VAPOTHERM 35LPM FIO2 100%. SPO2 93%, HR 106.
[2020-02-04 14:58] LABS: NEUTROPHILS % (AUTO) 91.4 % (40.0-70.0)
[2020-02-04 15:13] VITALS: BP_SYST 157
[2020-02-04 19:55] VITALS: BP_SYST 158
--- NOTE | 2020-02-04 20:00 | NUR ---
INITIAL NOTE AT INITIAL ASSESSMENT, PATIENT IS RESTING IN BED, STABLE, NO SIGNS OF RESPIRATORY DISTRESS. PATIENT SHOWS NO PAIN PER FLACC SCALE. PLAN OF CARE FOR THE EVENING IS COMMUNICATED WITH THE PATIENT. PATIENT IS UNABLE TO DEMONSTRATE CORRECT USAGE OF CALL LIGHT AT THIS TIME DUE TO COGNITIVE IMPAIRMENT; FREQUENT ROUNDING WILL BE COMPLETED THROUGHOUT THE NIGHT TO MEET ALL PATIENT NEEDS. BED IS LOCKED, ALARMED, AND AT THE LOWEST LEVEL. FALL SAFETY EDUCATION PROVIDED. FALL, SAFETY, ASPIRATION, ISOLATION, AND RESPIRATORY PRECAUTIONS WILL BE TAKEN THROUGHOUT THE SHIFT. INJURY RELATED TO RESTRAINTS WILL BE MONITORED CLOSELY AND ASSESSED HOURLY.
--- NOTE | 2020-02-04 22:00 | NUR ---
RESTRAINTS D/C PATIENT'S RESTRAINTS ARE D/C AT THIS TIME, PATIENT IS NO LONGER PULLING ON HIS NONREBREATHER MASK. WILL CONTINUE TO MONITOR CLOSELY.
[2020-02-05] VITALS (13 sets, daily range): BP systolic 57–155
--- NOTE | 2020-02-05 01:25 | NUR ---
@0125, called to assess, Pt. presents with increased WOB and low SpO2 reading. Pt. placed on BiPAP with initial settings of 15/10 @ 100%. Pt. able to hold an O2 saturation of 90%, awaiting further orders from employee placement specialist.
--- NOTE | 2020-02-05 01:52 | NUR ---
Paged Dr. Jennings
--- NOTE | 2020-02-05 03:41 | NUR ---
COMMUNICATION W/ FAMILY DR. CARRANZA IS HELPING CALL PATIENT'S SISTER TENA ERWIN [phone] WAS CALLED TO VERIFY THAT PATIENT IS FULL CODE, DR. CARRANZA HAS ALSO UPDATED PATIENT'S SISTER ON PATIENT'S CHANGE IN CONDITION WELL ANSWERED HER CONCERNS.
--- NOTE | 2020-02-05 03:56 | NUR ---
Second Paged for Dr. Jennings
--- NOTE | 2020-02-05 04:40 | NUR ---
COMMUNICATION W/ DR. JUDY KMI HAS PAGED BACK AT THIS TIME, MD MADE AWARE THAT PATIENT HAD RESPIRATORY DISTRESS STARTING AROUND 0045, OXYGEN SATURATION WAS LOW 53% AT BEDSIDE. RT WAS CALLED TO BEDSIDE FOR ASSISTANCE, @0125 BIPAP 100% WAS PLACED ON THE PATIENT, HIS OXYGEN SATURATION SLOWLY CLIMBED UP TO 89-90% WITH RESPIRATORY RATE 55. NOW THE PATIENT IS STILL ON BIPAP 100% RESPIRATIONS AT 28, OXYGEN SATURATION AROUND 96%. MD HAS VERBALIZED ORDER FOR INTUBATION NEXT TIME THE PATIENT HAS AN EPISODE OF DESATURATION. ORDER READ BACK, VERIFIED, AND WILL BE COMMUNICATED TO RT, CHARGE NURSE AND DR. CARRANZA IN ER.
[2020-02-05] MEDS: NORMAL SALINE 5 ML DISP.SYRIN IVF SCH (05:32)
--- NOTE | 2020-02-05 05:50 | NUR ---
Responded to rapid response @ 0550. Assisted Dr. Thompson in intubation of pt. 7.5 ETT secured @ 23cmLL Initial settings: AC 24, Vt 450, PEEP +5, 100% FIO2
--- NOTE | 2020-02-05 06:14 | NUR ---
CRUCIBLE PACKER/ PATIENT INTUBATED PATIENT IS HAVING ANOTHER EPISODE OF RESPIRATORY DISTRESS SATURATING AROUND 72% ON BIPAP 100%, RESPIRATORY RATE HIS BLOOD PRESSURE IS ABOUT 60/35, HR 72, PATIENT IS NON RESPONSIVE TO PAIN STIMULUS. HE IS AFEBRILE. RAPID RESPONSE CODE IS CALLED, HE IS PER DR. KIM'S ORDERS, PATIENT IS INTUBATED BY DR. CARRANZA AT BEDSIDE. WILL CONTINUE TO MONITOR CLOSELY. CHARGE NURSE AND SPECIAL PROCEDURES TECH ARE AWARE.
--- NOTE | 2020-02-05 06:22 | NUR ---
Paged Dr. Jennings
[2020-02-05] MEDS: ALBUTEROL MDI INHALATION 8 GM INH INH SCH ×3 (07:30→16:06)
--- NOTE | 2020-02-05 07:56 | NUR ---
DR. KIM SECOND PAGE DR. KIM PAGED AGAIN AT THIS TIME, AWAITING CALL BACK.
--- NOTE | 2020-02-05 08:20 | NUR ---
COMMUNICATION W/ DR. JUDY KIM HAS CALLED, BACK AT THIS TIME, HE WAS MADE AWARE THAT PATIENT HAS BEEN INTUBATED, MD ORDERED TRANSFER TO ICU, MD VERBALIZED HE IS ON THE WAY TO THE HOSPITAL, AND WILL PLACE ALL ORDERS HIMSELF ONCE HE ARRIVES. WILL COMMUNICATE TO RECEIVING RN AND CHARGE NURSE Addendum: 02/06/20 at 0127 by Torie Schilling RN DR. KIM MADE AWARE THAT ABG RESULTS ARE RESULTED WITH SOME CRITICAL VALUES, MD VERBALIZED HE WILL TAKE A LOOK HIMSELF ONCE HE ARRIVES AT THE HOSPITAL, STATES HE IS ABOUT 15 MINUTES AWAY.
--- NOTE | 2020-02-05 08:30 | NUR ---
SBAR REPORT TO ICU SBAR REPORT GIVEN TO BENEFITS MANAGERELIZABETH. RN IS AWARE THAT DR. KIM STATED HE WILL BE AT THE HOSPITAL IN [address] HIS OWN ORDERS. Addendum: 02/06/20 at 0135 by Torie Schilling RN ENDORSED TO ICU CHARGE NURSE TO COMMUNICATE TO PATIENT'S FAMILY ABOUT INTUBATION.
[2020-02-05] MEDS ORDERED: NOREPINEPHRINE BITARTRATE 4 MG in NS 246 ML IV PRN (10:00)
[2020-02-05] MEDS ORDERED: SODIUM BICARBONATE 8.4% JECT 50 MEQ/50 ML SYRINGE IVP ONE ×2 (10:31→10:45)
[2020-02-05] MEDS ORDERED: NACL 0.9% 1,000 ML IV SCH (10:45)
[2020-02-05] MEDS ORDERED: PROPOFOL DRIP 100 ML IV PRN (10:45)
[2020-02-05] MEDS ORDERED: PANTOPRAZOLE SODIUM 40 MG/VIAL (PROTONIX) IVP SCH (10:45)
[2020-02-05] MEDS ORDERED: COMMUNICATION ORDER XX ONE (10:45)
[2020-02-05] MEDS ORDERED: NACL 0.9% 1,000 ML IV ONE ×2 (10:45)
[2020-02-05] MEDS ORDERED: GABAPENTIN 300 MG CAPSULE NG SCH (11:39)
[2020-02-05] MEDS ORDERED: ACETAMINOPHEN 325 MG TABLET NG PRN (11:39)
[2020-02-05] MEDS ORDERED: ASCORBIC ACID 500 MG TABLET NG SCH (11:39)
[2020-02-05] MEDS ORDERED: CHOLECALCIFEROL (VITAMIN D3) 5,000 UNIT TABLET NG SCH (11:39)
[2020-02-05] MEDS ORDERED: traZODone HCL 50 MG TABLET (DESYREL) NG PRN (11:40)
[2020-02-05] MEDS ORDERED: HYDROcodone/ACETAMIN 5-325 MG TAB (NORCO/ VICODIN) NG PRN (11:40)
[2020-02-05] MEDS ORDERED: HYDROcodone/ACETAMIN 10-325 MG TAB NG PRN (11:40)
[2020-02-05] MEDS ORDERED: IBUPROFEN 800 MG TABLET NG SCH (11:40)
[2020-02-05] MEDS: PIPERACILLIN/TAZO 3.375/DEX-IS 50 ML IV SCH ×2 (11:53→12:04)
[2020-02-05] MEDS ORDERED: PANTOPRAZOLE SODIUM 40 MG/VIAL (PROTONIX) ONE (11:55)
[2020-02-05] MEDS ORDERED: CHOLECALCIFEROL (VITAMIN D3) 5,000 UNIT TABLET NG ONE (12:00)
[2020-02-05] MEDS ORDERED: ASCORBIC ACID 500 MG TABLET NG ONE (12:00)
[2020-02-05] MEDS ORDERED: GABAPENTIN 300 MG CAPSULE NG ONE (12:00)
[2020-02-05] MEDS ORDERED: IBUPROFEN 800 MG TABLET NG ONE (12:00)
[2020-02-05] MEDS ORDERED: VANCOMYCIN HCL 1,750 MG in NS 500 ML IV SCH (12:00)
[2020-02-05 12:39] LABS: ALBUMIN 1.3 g/dL (3.4-4.8); BILIRUBIN,DIRECT 3.1 mg/dL (0.0-0.3); C-REACTIVE PROTEIN QUANT 8.9 mg/dL (0-0.5); CALCIUM 7.6 mg/dL (8.4-11.0); CREATININE 2.72 mg/dL (0.55-1.30)
[2020-02-05 12:48] LABS: PROTHROMBIN TIME 68.3 SECS (9.5-12.5)
[2020-02-05] MEDS ORDERED: DEXTROSE 50% JECT 50 ML DISP.SYRIN ONE ×2 (13:00→15:19)
[2020-02-05] MEDS ORDERED: DEXTROSE 50% JECT 50 ML DISP.SYRIN IVP ONE ×2 (13:00→16:00)
[2020-02-05 13:03] LABS: ERYTHROCYTE SEDIMENTATION RATE 6 MM/HR (0-15)
[2020-02-05 13:06] LABS: CORRECTED WHITE BLOOD COUNT 56.8 K/uL (4.5-11.0); WHITE BLOOD COUNT (AUTO) 56.8 K/uL (4.8-10.8)
[2020-02-05 13:07] LABS: HEMOGLOBIN 5.9 g/dL (14.0-18.0); RED BLOOD CELL COUNT(AUTO) 2.87 MIL/uL (4.2-6.2)
[2020-02-05 13:08] LABS: HEMATOCRIT 21.4 % (36-54); MEAN CORPUSCULAR HEMOGLOBIN 20 pg (27-31); MEAN CORPUSCULAR HGB CONC 27 % (32-36); MEAN CORPUSCULAR VOLUME 75 fL (79.0-98.0); RED CELL DISTRIBUTION WIDTH 26.3 % (9.0-15.0)
[2020-02-05 13:09] LABS: PLATELET COUNT (AUTO) 398 K/uL (130-430)
[2020-02-05 13:14] LABS: ATYPICAL LYMPHOCYTES % 0 % (0-0); BAND % (MANUAL) 10 % (0-6); BASOPHILS % (MANUAL) 0 % (0-2); EOSINOPHILS % (MANUAL) 0 % (0-7); LYMPHOCYTES % (MANUAL) 4 % (20-46); MONOCYTES % (MANUAL) 3 % (0-11)
[2020-02-05 13:15] LABS: MYELOCYTES % 5 % (0-0)
[2020-02-05] MEDS ORDERED: ETOMIDATE 20 MG/ 10 ML VIAL (AMIDATE) IVP ONE (14:29)
[2020-02-05] MEDS ORDERED: SUCCINYLCHOLINE CHLORIDE 20 MG/ML(QUELICIN) IVP ONE (14:29)
[2020-02-05] MEDS ORDERED: NOREPINEPHRINE BITARTRATE 16 MG in NS 234 ML IV PRN (14:45)
--- NOTE | 2020-02-05 16:38 | NUR ---
Notified pt's sister Maxine regarding code blue, Maxine informed pt's children regarding father's status.
--- NOTE | 2020-02-05 16:54 | NUR ---
INFORMED MD'S PATIENT DR. GAFFNEY SPOKE TO MERVAT DIALED [phone] DR. WILSON SPOKE TO DEJUAN DIALED [phone] DR. FERNANDEZ SPOKE TO DEJUAN DIALED [phone] DR. KIM DIALED [phone] SPOKE TO
--- NOTE | 2020-02-05 17:14 | NUR ---
[facility] Spoke to José Miguel reference # [id number]. Pt is not a candidate for tissue / organ donation at this time.
--- NOTE | 2020-02-05 17:26 | NUR ---
[employer] Operator Spoke to Clerk Silva pt is not a coroners case at this time, the body can be released.
--- NOTE | 2020-02-07 11:32 | NUR ---
Mortuary Noted that patient's body has not been claimed and no mortuary listed. A voicemail from 02/05/20 18:13 was left on the Social Service line from patient's sister, Luann Reese, . Phoned Luann and left a voicemail with condolences, offer of assistance, and SS contact information. Addendum: 02/07/20 at 1639 by Lucrecia Weinberg LCSW Luann returned the call. She is working to get patient mortuary services through the [place]. They are closed today. She will follow up tomorrow. Luann requested a lock of hair. Phoned Field Foreman. She stated that patient was prepared for transport and did not want to ask staff to perform this request. Notified Luann. Possibly the mortuary can perform this.
== END 2020-02-05 16:44 | disposition expired | DRG 871 ==
LOC: SED 13:56 → STU 21:07 → SMU 02-01 17:17 → STU 02-04 06:43 → SIC 02-05 08:45
PROVIDERS: ADMIT Preventive Medicine Preventive Medicine/Occupational Environmental Medicine; ATTEND Preventive Medicine Preventive Medicine/Occupational Environmental Medicine
PROC: XW13325 Transfusion of Convalescent Plasma (Nonautologous) into Peripheral Vein, Percutaneous Approach, New Technology Group 5 (ICD-10-PCS; principal; 2020-01-29)
PROC: XW033E5 Introduction of Remdesivir Anti-infective into Peripheral Vein, Percutaneous Approach, New Technology Group 5 (ICD-10-PCS; 2020-01-29)
PROC: 0BH17EZ Insertion of Endotracheal Airway into Trachea, Via Natural or Artificial Opening (ICD-10-PCS; 2020-02-05)
PROC: 5A1935Z Respiratory Ventilation, Less than 24 Consecutive Hours (ICD-10-PCS; 2020-02-05)
PROC: 02HV33Z Insertion of Infusion Device into Superior Vena Cava, Percutaneous Approach (ICD-10-PCS; 2020-02-05)
PROC: B548ZZA Ultrasonography of Superior Vena Cava, Guidance (ICD-10-PCS; 2020-02-05)
DX: A41.89 Other specified sepsis (principal); U07.1 COVID-19; J12.89 Other viral pneumonia; J96.01 Acute respiratory failure with hypoxia; R65.21 Severe sepsis with septic shock; E43 Unspecified severe protein-calorie malnutrition; E87.1 Hypo-osmolality and hyponatremia; E87.2 Acidosis; N17.9 Acute kidney failure, unspecified; R00.1 Bradycardia, unspecified; D64.9 Anemia, unspecified; E66.9 Obesity, unspecified; E78.5 Hyperlipidemia, unspecified; E83.51 Hypocalcemia; E88.09 Other disorders of plasma-protein metabolism, not elsewhere classified; Z20.828 Contact with and (suspected) exposure to other viral communicable diseases; R74.01 Elevation of levels of liver transaminase levels; R73.9 Hyperglycemia, unspecified; Z68.29 Body mass index [BMI] 29.0-29.9, adult
CPT/HCPCS: 36415; 36600; 71045; 80048; 80053; 80074; 80076; 82728; 82803-TC; 82962; 83605; 83735-TC; 84100-TC; 84484; 85007; 85025; 85027; 85379; 85610-TC; 85651-TC; 86140; 86710; 86886; 86900; 86901; 86920; 87040-TC; 93005; 94002; 94640; 94760; 96361; 96365; 96367; 97163; 99291; C1751; C9113; G0378; J0330; J0456; J0696; J1100; J1650; J2543; J3370; J3490; J7030; J7040; J7050; P9017